=== PATIENT | female | born 1945 | race Caucasian/White ===

== ENCOUNTER 2020-09-19 16:03 | Emergency (ER) | payer MEDICARE, BC ==
[2020-09-19] MEDS ORDERED: Ketorolac 30 MG/ML SDV IVPUSH ONE (16:31)
[2020-09-19] MEDS ORDERED: Sodium Chloride 0.9% 10 ML Syringe FLUSH PRN (16:31)
[2020-09-19] MEDS ORDERED: Sodium Chloride 0.9% 1,000 ML IV STA (16:31)
[2020-09-19] MEDS ORDERED: Ondansetron 4 MG/2 ML SDV IVPUSH ONE (16:31)
--- NOTE | 2020-09-19 16:57 | EDM.PDOC ---
ED HPI GENERAL MEDICAL PROBLEM - General Chief Complaint: Flank Pain Stated Complaint: FLANK PAIN Time Seen by Provider: 09/19/20 16:12 Source of Information: Reports: Patient, RN Notes Reviewed History Limitations: Reports: No Limitations - History of Present Illness INITIAL COMMENTS - FREE TEXT/NARRATIVE: Patient is a 75 year old female presenting with c/o left flank pain, nausea, and vomiting that began approximately 1 hour prior to arrive to ER. Onset was abrupt. She does have a hx of kidney stones and states that this feels similar to her previous episodes. 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 She denies and recent fever or chills. Denies any visible blood in her urine. Flank Pain Score (Numeric/FACES): 7 - Related Data Allergies Allergy/AdvReac Type Severity Reaction Status Date / Time melatonin Allergy Cannot Verified 09/19/20 16:22 Remember oxycodone Allergy Cannot Verified 09/19/20 16:22 Remember sulfacetamide Allergy Cannot Verified 09/19/20 16:22 Remember Home Meds: Home Meds Acetaminophen/HYDROcodone [Amber 325-5 MG] 1 tab PO Q4H PRN #10 tablet 09/19/20 [Rx] Ondansetron [Zofran ODT] 4 mg PO Q6H PRN #10 tab.dis 09/19/20 [Rx] Tamsulosin [Tamsulosin 24 Hr] 0.4 mg PO DAILY #14 cap.er 09/19/20 [Rx] Past Medical History HEENT History: Reports: Impaired Vision Cardiovascular History: Reports: Hypertension Genitourinary History: Reports: Renal Calculus Social & Family History - Tobacco Use Tobacco Use Status *Q: Never Tobacco User ED ROS GENERAL - Review of Systems Review Of Systems: See Below Constitutional: Reports: No Symptoms. Denies: Fever, Chills, Weakness HEENT: Reports: No Symptoms Respiratory: Reports: No Symptoms Cardiovascular: Reports: No Symptoms Endocrine: Reports: No Symptoms GI/Abdominal: Reports: Nausea, Vomiting. Denies: Abdominal Pain, Diarrhea : Reports: Flank Pain. Denies: Dysuria, Frequency, Hematuria Musculoskeletal: Reports: No Symptoms Skin: Reports: No Symptoms Neurological: Reports: No Symptoms Psychiatric: Reports: No Symptoms Hematologic/Lymphatic: Reports: No Symptoms Immunologic: Reports: No Symptoms ED EXAM, RENAL/ - Physical Exam Exam: See Below General Appearance: Alert, WD/WN, No Apparent Distress Respiratory/Chest: No Respiratory Distress, Lungs Clear, Normal Breath Sounds, No Accessory Muscle Use, Chest Non-Tender Cardiovascular: Normal Peripheral Pulses, Regular Rate, Rhythm, No Edema, No Gallop, No JVD, No Murmur, No Rub GI/Abdominal: Normal Bowel Sounds, Soft, Non-Tender, No Organomegaly, No Distention, No Abnormal Bruit, No Mass Back Exam: Normal Inspection, Full Range of Motion, CVA Tenderness (L). No: CVA Tenderness (R) Neurological: Alert, Oriented, CN II-XII Intact, Normal Cognition, Normal Gait, Normal Reflexes, No Motor/Sensory Deficits Psychiatric: Normal Affect, Normal Mood Skin Exam: Warm, Dry, Intact, Normal Color, No Rash Course - Vital Signs Last Recorded V/S: Last Vital Signs Temp 97.6 F 09/19/20 16:18 Pulse 69 09/19/20 16:18 Resp 16 09/19/20 16:18 BP 198/73 H 09/19/20 16:18 Pulse Ox 97 09/19/20 19:07 - Orders/Labs/Meds Orders: Active Orders 24 hr Category Date Time Status Peripheral IV Insertion Adult [OM.PC] Stat Oth 09/19/20 16:30 Ordered Labs: Laboratory Tests 09/19/20 09/19/20 09/19/20 Range/Units 16:30 16:30 16:40 WBC 10.09 H (3.98-10.04) K/mm3 RBC 4.88 (3.98-5.22) M/mm3 Hgb 14.3 (11.2-15.7) gm/dl Hct 44.8 (34.1-44.9) % MCV 91.8 (79.4-94.8) fl MCH 29.3 (25.6-32.2) pg MCHC 31.9 L (32.2-35.5) g/dl RDW Std Deviation 42.5 (36.4-46.3) fL Plt Count 216 (182-369) K/mm3 MPV 9.9 (9.4-12.3) fl Neut % (Auto) 75.8 H (34.0-71.1) % Lymph % (Auto) 16.8 L (19.3-51.7) % Ward % (Auto) 5.6 (4.7-12.5) % Eos % (Auto) 1.1 (0.7-5.8) Baso % (Auto) 0.4 (0.1-1.2) % Neut # (Auto) 7.65 H (1.56-6.13) K/mm3 Lymph # (Auto) 1.70 (1.18-3.74) K/mm3 Ward # (Auto) 0.56 H (0.24-0.36) K/mm3 Eos # (Auto) 0.11 (0.04-0.36) K/mm3 Baso # (Auto) 0.04 (0.01-0.08) K/mm3 Manual Slide Review Normal smear Sodium 138 (136-145) mEq/L Potassium 4.0 (3.5-5.1) mEq/L Chloride 103 (98-107) mEq/L Carbon Dioxide 24 (21-32) mEq/L Anion Gap 15.0 (5-15) BUN 20 H (7-18) mg/dL Creatinine 1.2 H (0.55-1.02) mg/dL Est Cr Clr Drug Dosing TNP Estimated GFR (MDRD) 44 (>60) mL/min BUN/Creatinine Ratio 16.7 (14-18) Glucose 129 H (83-115) mg/dL Calcium 9.7 (8.5-10.1) mg/dL Total Bilirubin 0.3 (0.2-1.0) mg/dL AST 23 (15-37) U/L ALT 31 (14-59) U/L Alkaline Phosphatase 81 (46-116) U/L C-Reactive Protein 0.3 (<1.0) mg/dL Total Protein 8.1 (6.4-8.2) g/dl Albumin 4.1 (3.4-5.0) g/dl Globulin 4.0 gm/dL Albumin/Globulin Ratio 1.0 (1-2) Urine Color Yellow (Yellow) Urine Appearance Clear (Clear) Urine pH 5.5 (5.0-8.0) Ur Specific [place] > or = 1.030 (1.005-1.030) Urine Protein Negative (Negative) Urine Glucose (UA) Negative (Negative) Urine Ketones Negative (Negative) Urine Occult Blood 2+ H (Negative) Urine Nitrite Negative (Negative) Urine Bilirubin Negative (Negative) Urine Urobilinogen 0.2 (0.2-1.0) Ur Leukocyte Esterase Negative (Negative) Urine RBC 0-5 (0-5) /hpf Urine WBC 0-5 (0-5) /hpf Ur Squamous Epith Cells 0-5 (0-5) /hpf Urine Bacteria Few (FEW) /hpf Urine Mucus Few (FEW) /hpf Meds: Medications Discontinued Medications Generic Name Dose Route Start Last Admin Trade Name Freq PRN Reason Stop Dose Admin Sodium Chloride 1,000 mls @ 999 mls/hr 09/19/20 16:31 09/19/20 16:38 Normal Saline IV 09/19/20 17:31 999 mls/hr NOW STA Administration Ketorolac Tromethamine 30 mg 09/19/20 16:31 09/19/20 16:39 Toradol IVPUSH 09/19/20 16:32 30 mg ONETIME ONE Administration Ondansetron HCl 4 mg 09/19/20 16:31 09/19/20 16:38 Zofran IVPUSH 09/19/20 16:32 4 mg ONETIME ONE Administration Sodium Chloride 10 ml 09/19/20 16:31 09/19/20 16:40 Saline Flush FLUSH 10 ml ASDIRECTED PRN Administration Keep Vein Open Tamsulosin HCl 0.4 mg 09/19/20 19:16 09/19/20 19:28 Flomax PO 09/19/20 19:17 0.4 mg ONETIME ONE Administration - Re-Assessments/Exams Free Text/Narrative Re-Assessment/Exam: 09/19/20 19:13 Hematology showed a WBC minimally elevated at 10.09, BUN 20, creatinine 1.2. Urinalysis shows 2+ occult blood with no signs of infection. Patient is feeling better with the medications given. CT scan results are still pending. 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 Patient's urologist is Dr. Joyner at [facility] in [place]. I will send a referral to him as she will likely require intervention to pass the stone given her history of narrowing of her ureter. Her pain is still well controlled. I will send a prescription for Amber, Zofran, and Flomax. Discussed return precautions. Discharge instructions as documented. Departure - Departure Time of Disposition: 19:39 Disposition: Home, Self-Care 01 Condition: Good Clinical Impression: Kidney stone on left side - Discharge Information *PRESCRIPTION DRUG MONITORING PROGRAM REVIEWED*: Yes *COPY OF PRESCRIPTION DRUG MONITORING REPORT IN PATIENT TOMASA: No Prescriptions: Tamsulosin [Tamsulosin 24 Hr] 0.4 mg PO DAILY #14 cap.er Acetaminophen/HYDROcodone [Amber 325-5 MG] 1 tab PO Q4H PRN #10 tablet PRN Reason: Pain Ondansetron [Zofran ODT] 4 mg PO Q6H PRN #10 tab.dis PRN Reason: Nausea/Vomiting Instructions: Kidney Stones, [id number] Referrals: Pedrito Francisco Jr, MD [Primary Care Provider] - Mali Joyner MD [Ordering Only Provider] - Forms: ED Department Discharge Additional Instructions: You were seen in the emergency department today for left-sided flank pain. CT scan was completed and shows that she have a 5.5 mm kidney stone in your left ureter. The remainder of your work-up was found to be normal. While in the ER, you received IV fluids, Zofran for nausea, Toradol for pain. He also received your first dose of Flomax. Recommend that you take Tylenol and ibuprofen routinely for the left flank pain. For pain not relieved by these measures, a prescription for Amber has been sent. I have also sent a prescription for Zofran for nausea, as well as Flomax. Take his medications as prescribed. Recommend straining your urine each time you go. A referral has been sent to your urologist. Recommend that you call to schedule an appointment with him at his next available visit as you will likely require intervention to remove the stone. The number to schedule with him as listed below. If you should develop fever, chills, or any other concerning symptoms, please return to the emergency department for reevaluation. Sepsis Event Note (ED) - Evaluation Sepsis Screening Result: No Definite Risk - My Orders Last 24 Hours: My Active Orders 09/19/20 16:30 Peripheral IV Insertion Adult [OM.PC] Stat - Assessment/Plan Last 24 Hours: My Active Orders 09/19/20 16:30 Peripheral IV Insertion Adult [OM.PC] Stat
[2020-09-19] MEDS ORDERED: Tamsulosin 0.4 MG Cap.ER PO ONE (19:16)
--- NOTE | 2020-09-19 19:29 | CT ---
CT abdomen and pelvis Technique: Multiple axial sections were obtained from above the dome of the diaphragm inferiorly through the pubic symphysis. Intravenous and oral contrast not utilized. Study was performed as a ureteral stone protocol. Reconstructed coronal and sagittal images were obtained. 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 Left kidney shows an obstructing stone which is located within the left UPJ measuring 5.5 mm which appears to cause proximal hydronephrosis. At least 3 stones are seen within the left kidney which are nonobstructing. No other abnormal calcifications are seen along the course of the ureters. Other findings: Visualized lung bases show nothing acute. Liver shows irregular areas of fatty infiltration. Spleen size is normal. Adrenal glands show no nodule. Pancreas shows no discrete mass. Surgical clips are seen from prior cholecystectomy. Aorta shows diffuse atherosclerotic calcification without aneurysm. No retroperitoneal adenopathy or mesenteric abnormalities are seen. Appendix is seen which is normal. No pelvic mass or adenopathy is seen. No free fluid or inflammatory change is otherwise seen. Bone window settings were reviewed which show scattered degenerative change throughout the spine. No acute osseous finding is appreciated. Impression: 1. 5.5 mm obstructing stone within the left UPJ. 2. Three nonobstructing calculi within the left kidney. 3. 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 4. Partial fatty infiltration within the liver. 5. Other findings believed to be incidental as noted above. Diagnostic code #3
== END 2020-09-19 19:50 | disposition home or self-care (01) ==
LOC: JD.ED 16:03
DX: N20.0 Calculus of kidney (principal); I10 Essential (primary) hypertension; Z88.8 Allergy status to other drugs, medicaments and biological substances; Z88.5 Allergy status to narcotic agent; Z88.2 Allergy status to sulfonamides
CPT/HCPCS: 36415; 74176; 80053; 81001; 85025; 86140; 96374; 96375; 99284; A9270; J1885; J2405; J7030